=== PATIENT | male | born 1955 | race Caucasian/White ===

== ENCOUNTER 2023-04-09 13:00 | Day surgery (SDC) | payer MEDICARE ==
[~2023-04-09] VITALS: Ht 177.8 cm; Wt 86.5 kg
[2023-04-09 13:22] VITALS: BP 145/71
--- NOTE | 2023-04-09 15:18 | NUR ---
04/09/23 1518 Sammie Hodo 1501-PATIENT ARRIVED TO PACU ON 2L NC RR EVEN. PATIENT AWAKE DROWSY ABDOMEN A LITTLE FIRM IVF INFUSING. ENCOURAGED TO PASS GAS. BP'S RANGING 180-190'S.
[2023-04-09 16:24] VITALS: BP 148/92
--- NOTE | 2023-04-10 09:47 | OR ---
[facility] [address] [place], [place] [address] Signed DATE OF OPERATION: 04/09/2023 SURGEON: Lalitha Turner MD PREOPERATIVE DIAGNOSIS: History of diverticulosis, currently diarrhea. POSTOPERATIVE DIAGNOSES: Extensive sigmoid and left-sided diverticulosis. No evidence of colitis or polyp. PROCEDURE: Total colonoscopy to cecum with biopsy of rectum. ANESTHESIA: Intravenous sedation, fentanyl 150 mcg and Versed 6 mg. INDICATIONS FOR THE PROCEDURE: This 67-year-old white man is a patient of Dr. Arcos. He is known to me from the past having undergone colonoscopy in 2003, at which point he had sigmoid diverticulosis. He currently has no blood per rectum or constipation, but does have significant diarrhea from time to time. The risk of bleeding, infection, and perforation related to colonoscopy was reviewed with him. He understands and wished to proceed. FINDINGS: Extensive diverticular changes noted in the sigmoid and left colon. Remaining colon was otherwise normal. Full intubation of the cecum was accomplished. The ileocecal valve and appendiceal orifice were normal. There was no evidence of colitis or polyps, only diverticulosis. DESCRIPTION OF PROCEDURE: The patient was brought to the endoscopy suite and placed in lateral decubitus position given intravenous sedation to the point of slurred speech and nystagmus. Digital rectal examination was normal including a normal prostate. The Olympus video colonoscope was passed into the rectum and manipulated throughout the colon, ultimately intubating the cecum. Abdominal wall stabilization was required for passage beyond the sigmoid. Extensive diverticulosis was noted in the sigmoid. The cecum itself was normal. The scope was withdrawn from that point and examination throughout showed no sign of abnormality until the sigmoid, where numerous diverticula were noted. The scope was then withdrawn to the rectum and biopsies taken there, though Electronically Signed By: LALITHA TURNER MD 04/10/23 0947 PATIENT NAME: JOSE C ESPINOZA OPERATIVE REPORT DATE OF : 51 REPORT #: [id number] PHYSICIAN: LALITHA TURNER MD PCP: SAMUEL ARCOS MD REPORT IS CONFIDENTIAL AND NOT TO BE RELEASED WITHOUT AUTHORIZATION [facility] [address] [place], [place] [address] Signed it appeared normal. The purpose was of course to assess for colitis. The scope was then removed and the patient was taken to the recovery room in good condition. CONCLUDING DIAGNOSIS: Diverticulosis, extensive, no evidence of colitis. PLAN: Recommend fiber supplement such as Metamucil one scoop p.o. daily or high-fiber diet. We will recommend repeat colonoscopy in 10 years or sooner if clinically indicated. He will return to the ongoing care of Dr. Arcos. MD REHANA Hamilton/MODL /[id number] cc: Dr. Arcos Copies: ~ Electronically Signed By: LALITHA TURNER MD 04/10/23 0947 PATIENT NAME: JOSE C ESPINOZA OPERATIVE REPORT DATE OF : 51 REPORT #: [id number] PHYSICIAN: LALITHA TURNER MD PCP: SAMUEL ARCOS MD REPORT IS CONFIDENTIAL AND NOT TO BE RELEASED WITHOUT AUTHORIZATION
--- NOTE | 2023-04-12 12:55 | PATH ---
[facility] [address] [facility] [place] [address] Signed SPECIMEN(S): A RECTAL BIOPSY SPECIMEN SOURCE: A. RECTAL BIOPSY CLINICAL HISTORY: Diverticulosis; diarrhea/diverticulosis. FINAL PATHOLOGIC DIAGNOSIS: Rectal biopsy: - Polypoid colonic mucosa with slight hyperplastic features (one fragment). JVR:[facility] MICROSCOPIC EXAMINATION: Histologic sections of all submitted blocks are examined by light microscopy. These findings, together with the gross examination, support the pathologic diagnosis. GROSS DESCRIPTION: A. The specimen, labeled and designated "Stella rectum biopsy," is received in formalin and consists of one [place] soft tissue fragment, 0.3 cm. Entirely submitted in (A1). JS (under the direct supervision of a pathologist) The Gross Description was prepared using a voice recognition system. The report was reviewed for accuracy; however, sound-alike word errors, addition and/or deletions may occur. If there is any question about this report, please contact Client Services. PERFORMING LABORATORY: Technical component was performed by [facility], [address] [place] [id number] (CLIA# [id number]). Professional interpretation was performed by [facility], [address] [place] [id number] (CLIA#: [id number]). Diagnostician: Js Osuna MD Pathologist Electronically Signed 04/12/2023 Copies: PATIENT NAME: JOSE C ESPINOZA PATHOLOGY DATE OF : 51 REPORT #: [id number] PHYSICIAN: FELIPA PATHOLOGY PCP: SAMUEL ARCOS MD REPORT IS CONFIDENTIAL AND NOT TO BE RELEASED WITHOUT AUTHORIZATION [address] [place], [place] [address] Signed ~ PATIENT NAME: JOSE C ESPINOZA PATHOLOGY DATE OF : 51 REPORT #: [id number] PHYSICIAN: FELIPA PARKS PCP: SAMUEL ARCOS MD REPORT IS CONFIDENTIAL AND NOT TO BE RELEASED WITHOUT AUTHORIZATION
== END 2023-04-09 16:30 | disposition home or self-care (01) ==
LOC: OPS 13:00 → DS 13:00 → OPS 14:00
PROVIDERS: ATTEND Surgery
PROC: 0DBP8ZX Excision of Rectum, Via Natural or Artificial Opening Endoscopic, Diagnostic (ICD-10-PCS; principal; 2023-04-09 14:00)
DX: K57.30 Diverticulosis of large intestine without perforation or abscess without bleeding (principal); R19.7 Diarrhea, unspecified; Z96.652 Presence of left artificial knee joint; K62.1 Rectal polyp
CPT/HCPCS: 99153; G0500; J0360; J0690; J2250; J3010; J7121